=== PATIENT | female | born 1970 | race Hispanic/Latino ===

== ENCOUNTER 2023-01-16 16:12 | Emergency (ER) | payer OTHER, SELFPAY ==
[2023-01-16] VITALS (26 sets, daily range): BP systolic 96–116; BP diastolic 53–80; PULSE 67–91; RESP 13–22; TEMP 36.8; O2SAT 100
--- NOTE | ~2023-01-16 | XR_ITS ---
EXAMINATION: XR wrist RT 2V DATE: 01/16/2023 16:35 INDICATION: Right wrist injury and pain. TECHNIQUE: 2 views of right wrist were obtained. COMPARISON: None. FINDINGS: There is a comminuted fracture of distal radius with involvement of the distal articular mcfarland rface and distal radioulnar joint. The main distal fracture fragment demonstrates 8 mm palmar displac ement and impaction. Ulnar styloid is intact. Joint spaces are normal. IMPRESSION: 1. Comminuted fracture of distal radius. Reviewed, dictated and finalized at location E.
--- NOTE | ~2023-01-16 | XR_ITS ---
EXAMINATION: XR chest 1V portable DATE: 01/16/2023 17:39 INDICATION: Shortness of breath. TECHNIQUE: A single frontal view of the chest was obtained on 2 radiographs. COMPARISON: None. FINDINGS: There is no pneumonia, pleural effusion, or pneumothorax. The heart size is normal. IMPRESSION: 1. No acute cardiopulmonary disease. Reviewed, dictated and finalized at location A.
--- NOTE | ~2023-01-16 | XR_ITS ---
EXAMINATION: XR wrist RT 2V DATE: 01/16/2023 18:53 INDICATION: Distal right radius fracture status post reduction. TECHNIQUE: 2 views of right wrist were obtained. COMPARISON: Right wrist radiographs at 4:29 PM FINDINGS: There is a comminuted fracture of distal radius with involvement of the distal articular mcfarland rface of distal radioulnar joint. The main distal fracture fragment demonstrates 8 mm palmar displace ment and impaction. Ulnar styloid is intact. There is an old fracture deformity of triquetrum with sh ortening of the fifth ray. Joint spaces are normal. Cast material is noted. IMPRESSION: 1. Comminuted fracture of distal radius. Reviewed, dictated and finalized at location A.
--- NOTE | ~2023-01-16 | XR_ITS ---
EXAMINATION: XR ankle RT min 3V DATE: 01/16/2023 16:35 INDICATION: Right ankle injury. TECHNIQUE: 4 views of right ankle were obtained. COMPARISON: None. FINDINGS: Bone alignment is normal. No fracture. Joint spaces are well maintained. There are enthesop hytes at the posterior and plantar aspects of calcaneal tuberosity. IMPRESSION: 1. No fracture. Reviewed, dictated and finalized at location E. IMPRESSION: 1. No fracture.
[2023-01-16] MEDS: SODIUM CHLORIDE 0.9% IV 1,000 ML 999 ML IV CONT (16:43)
[2023-01-16] MEDS: fentaNYL CITRATE INJ (*CRX) 100 MCG/2 ML VIAL 25 MCG IV PUSH (16:44)
--- NOTE | 2023-01-16 17:09 | ED.FALL ---
HPI - Fall General Chief Complaint: Fall Stated Complaint: fall, R wrist/ankle pain Time Seen by Provider: 01/16/23 16:12 History of Present Illness HPI Narrative: Patient is a 52-year-old female who presents ER status post fall. She was at a local college for graduation. She tripped and fell down 13 stairs. She somersaulted. She injured her right wrist and ankle. Had obvious deformity of the wrist for EMS. She had some lateral malleolus pain as well. Denies LOC. No headache or change in vision or change in hearing. No numbness or tingling to the arms or legs. No neck pain. Related Data Allergies Allergy/AdvReac Type Severity Reaction Status Date / Time No Known Allergies Allergy Verified 01/16/23 16:20 Review of Systems Review of Systems: All systems reviewed & are unremarkable except as noted in HPI and below Eyes: Eyes: Denies change in vision ENT: Denies nasal congestion and Denies sore throat Gastrointestinal: Gastrointestinal: Denies abdominal pain, Denies nausea and Denies vomiting Musculoskeletal: Musculoskeletal: Reports arthralgias, Reports joint swelling and Denies muscle cramps Neurologic: Denies syncope, Denies headache(s), Denies focal weakness and Denies numbness PMFSH Past Medical History Medical History (Updated 01/16/23 @ 18:56 by Taqueria Toro MD) Healthy female adult Surgical History Surgical History (Updated 01/16/23 @ 18:56 by Taqueria Toro MD) No history of previous surgery Exam Narrative: GENERAL: Well-appearing, well-nourished, and in no acute distress. HEAD: Normocephalic, atraumatic. ENT: Mucous membranes moist. CHEST: Clear to auscultation. No respiratory distress. HEART: Regular rate and rhythm. Normal peripheral pulses. ABDOMEN: Soft, nontender, nondistended. EXTREMITIES: Deformity right wrist with tenderness and swelling. Limited range of motion due to pain. Neurovascular intact distal to the injury. No elbow tenderness. Right ankle with unremarkable exam with exception of slight tenderness over the lateral malleolus. No deformity to the left upper or lower extremity. SKIN: Warm, dry, no rash. NEURO: No focal deficits. Alert and oriented x3. PSYCH: Normal mood and affect. Course Course Emergency Course: Discussed case with Dr. Rojas. Feels no additional attempts at reduction need to be made as this is a very unstable location for fracture. Patient family educated on fracture and treatment plan. They verbalized understanding. They plan to return to [facility] and seek additional care there. Patient will be provided a CD with her images. Patient will also receive pain medication for home. Vital Signs Vital signs: Vital Signs Temperature 98.2 F 01/16/23 16:14 Pulse Rate 71 01/16/23 16:14 Respiratory Rate 18 01/16/23 16:14 Blood Pressure 96/80 L 01/16/23 16:14 Pulse Oximetry 100 01/16/23 16:14 Oxygen Delivery Room Air 01/16/23 16:14 Temperature 98.2 F 01/16/23 16:14 Pulse Rate 86 01/16/23 17:21 Respiratory Rate 16 01/16/23 17:46 Blood Pressure 97/75 L 01/16/23 17:21 Pulse Oximetry 100 01/16/23 17:46 Oxygen Delivery Room Air 01/16/23 16:14 Procedures Orthopedic Fracture Reduction Fracture #1: Fracture Reduction date: 01/16/23 Fracture Reduction time: 18:32 Time Out Performed: Yes Side: right Fracture Reduction Location: radius Analgesia: procedural sedation Pre-Procedure Neuro Vascular Exam: normal Technique: direct manipulation Post-reduction neuro exam: intact Post-reduction vascular exam: intact Splint Applied: Yes Patient Tolerated Procedure: well Procedural Sedation Procedural Sedation #1: Procedural Sedation Date: 01/16/23 Procedural Sedation Time: 18:32 Presedation Evaluation: Blood pressure 116/65 mmHg. Satting 100% on room air with heart rate of 80 bpm. Awake alert and oriented
--- NOTE | 2023-01-16 18:50 | PC.NURSE ---
1832-40mg of propofol given by Dr Toro. Patient remains awake and alert. VSS 1834-20mg of propofol given by Dr Toro. Patient remains awake and alert. VSS 1837-20mg of propofol given by Dr Toro. Patient remains awake and alert, but is more relaxed. Provider able to reduce patient's wrist and place splint. Patient never was under sedation.
== END 2023-01-16 19:17 | disposition home or self-care (01) ==
PROVIDERS: Emergency Provider Emergency Medicine
DX: S52.591A Other fractures of lower end of right radius, initial encounter for closed fracture (principal); S99.911A Unspecified injury of right ankle, initial encounter; W10.9XXA Fall (on) (from) unspecified stairs and steps, initial encounter
CPT/HCPCS: 25600; 25605; 71045; 73100; 73610; 96374; 99285; A4565; J3010; J7030